=== PATIENT | female | born 1995 | race Two or more races ===

== ENCOUNTER 2022-01-07 06:25 | Day surgery (SDC) | payer BC, OTHER ==
[~2022-01-07 06:25] MED LIST: Lactated Ringers 1,000 ML IV SCH
[2022-01-07] MEDS ORDERED: Propofol 200 MG/20 ML SDV ONE (07:31)
[2022-01-07] MEDS ORDERED: fentaNYL 250 MCG/5 ML SDV ONE (07:31)
[2022-01-07] MEDS ORDERED: Ferric Subsulfate Topical Soln 8 GM (8 ML) Bottle ONE (07:41)
[2022-01-07] MEDS ORDERED: Iodine/Potassium Iodide 5% Solution 14 ML Bottle ONE (07:41)
[2022-01-07] MEDS ORDERED: Lidocaine 1% with EPINEPHrine 1:100,000 50 ML MDV ONE (07:41)
[2022-01-07 08:09] LABS: CARBON DIOXIDE,CO2 25.5 mmol/L (21.0-32.0)
[2022-01-07] MEDS ORDERED: Albuterol 0.083% 2.5 MG/3 ML Neb Soln NEB PRN (08:10)
[2022-01-07] MEDS ORDERED: Naloxone 0.4 MG/ML SDV IVPUSH PRN (08:10)
[2022-01-07] MEDS ORDERED: Ondansetron 4 MG/2 ML SDV IVPUSH PRN (08:10)
[2022-01-07] MEDS ORDERED: Morphine 4 MG/ML VIAL IVPUSH PRN (08:10)
[2022-01-07] MEDS ORDERED: Metoclopramide 10 MG/2 ML SDV IVPUSH PRN (08:10)
[2022-01-07] MEDS ORDERED: HYDROmorphone 1 MG/ML Syringe IVPUSH PRN (08:10)
[2022-01-07] MEDS ORDERED: fentaNYL 50 MCG/ML SDV IVPUSH PRN (08:10)
[2022-01-07] MEDS ORDERED: Ketorolac 30 MG/ML SDV ONE ×2 (08:34→10:09)
[2022-01-07] MEDS ORDERED: Dexamethasone 4 MG/ML 5 ML MDV ONE (08:34)
[2022-01-07] MEDS ORDERED: Ondansetron 4 MG/2 ML SDV ONE ×2 (08:34→10:09)
[2022-01-07] MEDS ORDERED: Acetaminophen/HYDROcodone 325-5 MG Tab PO PRN (08:47)
[2022-01-07] MEDS ORDERED: fentaNYL 100 MCG/2 ML SDV ONE ×2 (09:50→10:08)
== END 2022-01-07 09:54 | disposition home or self-care (01) ==
LOC: MW.SDS 06:25
PROVIDERS: ATTEND Obstetrics & Gynecology
DX: N87.1 Moderate cervical dysplasia (principal); I10 Essential (primary) hypertension; E66.9 Obesity, unspecified; Z98.890 Other specified postprocedural states; Z79.899 Other long term (current) drug therapy; Z88.1 Allergy status to other antibiotic agents; Z91.048 Other nonmedicinal substance allergy status; Z91.041 Radiographic dye allergy status; Z68.36 Body mass index [BMI] 36.0-36.9, adult
CPT/HCPCS: 36415; 57460; 80053; 81025; 85025; 86850; 86900; 86901; A9270; J0131; J1100; J1885; J2405; J2704; J3010; J7120; 00940; J3490

== ENCOUNTER 2023-03-11 14:03 | Inpatient (IN) | payer OTHER ==
[2023-03-11] MEDS ORDERED: Sodium Chloride 0.9% 20 ML SDV IV PRN (16:10)
[2023-03-11] MEDS ORDERED: Methylergonovine 0.2 MG/1 ML Amp IM PRN (16:10)
[2023-03-11] MEDS ORDERED: Water For Irrigation,Sterile 1,000 ML Container IRR PRN (16:10)
[2023-03-11] MEDS ORDERED: Sodium Chloride 0.9% 10 ML Syringe FLUSH PRN (16:10)
[2023-03-11] MEDS ORDERED: Misoprostol 200 MCG Tab PO PRN (16:10)
[2023-03-11] MEDS ORDERED: Ondansetron 4 MG/2 ML SDV IVPUSH PRN (16:10)
[2023-03-11] MEDS ORDERED: Lidocaine 1% 50 ML MDV INJECT PRN (16:10)
[2023-03-11] MEDS ORDERED: Carboprost Tromethamine 250 MCG/1 mL Vial IM PRN (16:10)
[2023-03-11] MEDS ORDERED: Terbutaline 1 MG/ML SDV SUBCUT PRN (16:10)
[2023-03-11] MEDS ORDERED: Tranexamic Acid IN NACL,ISO-OS 1,000 MG in Premix Bag 1 BAG IV PRN ×2 (16:10)
[2023-03-11] MEDS ORDERED: Sodium Chloride 0.9% 2.5 ML Syringe FLUSH PRN (16:10)
[2023-03-11] MEDS ORDERED: Oxytocin/0.9 % Sodium Chloride 30 UNIT/500 ML BAG IV SCH (16:15)
[2023-03-11] MEDS ORDERED: Nalbuphine 10 MG/0.5 ML Syringe IVPUSH PRN (16:24)
[2023-03-11] MEDS ORDERED: Misoprostol 25 MCG (1/4 of 100 MCG) Tab PO PRN (16:45)
[2023-03-11] MEDS: Lactated Ringers 1,000 ML IV SCH (16:55)
[2023-03-11 17:11] LABS: HEMATOCRIT 38.1 % (37.0-47.0); MEAN CORPUSCULAR HGB CONC 34.1 g/dL (32.0-36.0); MEAN CORPUSCULAR VOLUME 81.9 fL (83.0-99.0); MEAN PLATELET VOLUME 9.4 fL (9.4-12.3); PLATELET COUNT,PLT 332 K/uL (150-400); RED BLOOD CELL COUNT 4.65 M/uL (4.10-5.30); WHITE BLOOD CELL COUNT,WBC 14.66 K/uL (3.9-11.3)
[2023-03-11] MEDS: Misoprostol 25 MCG (1/4 of 100 MCG) Tab VAG PRN ×2 (17:27→21:27)
[2023-03-11] MEDS ORDERED: ePHEDrine 50 MG/ML SDV IVPUSH PRN ×2 (19:04)
[2023-03-11] MEDS ORDERED: Phenylephrine HCl 0.5 MG/5 ML AMP IVPUSH PRN (19:04)
[2023-03-11] MEDS: Misoprostol 25 MCG (1/4 of 100 MCG) Tab PO PRN (21:27)
[2023-03-12] MEDS: Misoprostol 25 MCG (1/4 of 100 MCG) Tab VAG PRN ×2 (01:43→05:39)
[2023-03-12] MEDS: Misoprostol 25 MCG (1/4 of 100 MCG) Tab PO PRN ×2 (01:45→05:42)
[2023-03-12] MEDS: Lactated Ringers 1,000 ML IV SCH ×4 (01:54→20:56)
[2023-03-12] MEDS ORDERED: Ampicillin/Sulbactam Na 3 GM in Sodium Chloride 0.9% 100 ML IV ONE (09:54)
[2023-03-12] MEDS: Oxytocin/0.9 % Sodium Chloride 30 UNIT/500 ML BAG IV SCH (10:14)
[2023-03-12] MEDS ORDERED: Dexmedetomidine 200 MCG/2 ML SDV ONE (12:30)
[2023-03-12] MEDS: Ampicillin/Sulbactam Na 1.5 GM in Sodium Chloride 0.9% 50 ML IV SCH ×2 (16:11→22:38)
[2023-03-13] MEDS: Lactated Ringers 1,000 ML IV SCH ×2 (01:53→04:09)
[2023-03-13] MEDS: Ampicillin/Sulbactam Na 1.5 GM in Sodium Chloride 0.9% 50 ML IV SCH ×4 (04:16→22:11)
[2023-03-13] MEDS: Ropivacaine HCl/PF 400 MG in Premix Bag 1 BAG EPIDUR SCH ×2 (05:32→16:10)
[2023-03-13] MEDS ORDERED: Bupivacaine 0.25% 10 ML SDV ONE (07:57)
[2023-03-13] MEDS ORDERED: fentaNYL 100 MCG/2 ML SDV ONE ×2 (07:57→18:05)
[2023-03-13] MEDS: Oxytocin/0.9 % Sodium Chloride 30 UNIT/500 ML BAG IV SCH (16:04)
[2023-03-13] MEDS ORDERED: Morphine PF 10 MG/10 ML SDV ONE (18:05)
[2023-03-13] MEDS ORDERED: Ketorolac 30 MG/ML SDV ONE (18:05)
[2023-03-13] MEDS ORDERED: ceFAZolin 1 GM Vial ONE ×2 (18:05→18:09)
[2023-03-13] MEDS ORDERED: Ropivacaine 0.5% 5 MG/ML 30 ML SDV ONE (18:05)
[2023-03-13] MEDS ORDERED: Dexamethasone 4 MG/ML 5 ML MDV ONE ×2 (18:05→18:39)
[2023-03-13] MEDS ORDERED: Oxytocin 10 Units/1 ML SDV ONE ×2 (18:05→18:55)
[2023-03-13] MEDS ORDERED: Ondansetron 4 MG/2 ML SDV ONE ×2 (18:05→18:07)
[2023-03-13] MEDS ORDERED: Lidocaine 2% 5 ML SDV ONE (18:09)
[2023-03-13] MEDS ORDERED: Phenylephrine 1% 10 MG/ML SDV ONE (18:09)
[2023-03-13] MEDS ORDERED: Azithromycin 500 MG Vial ONE (18:37)
[2023-03-13] MEDS ORDERED: Witch Hazel Medicated Pads 40/Jar TOP ONE (19:59)
[2023-03-13] MEDS ORDERED: Benzocaine/Menthol 20%-0.5% Spray 78 GM Cannister ONE (20:00)
[2023-03-13] MEDS ORDERED: fentaNYL 50 MCG/ML SDV IVPUSH PRN (20:07)
[2023-03-13] MEDS ORDERED: ePHEDrine 50 MG/ML SDV IVPUSH PRN (20:07)
[2023-03-13] MEDS ORDERED: Lanolin 100% Cream 7 GM Tube TOP PRN (20:07)
[2023-03-13] MEDS ORDERED: Misoprostol 200 MCG Tab RECTAL PRN (20:07)
[2023-03-13] MEDS ORDERED: Ondansetron 4 MG/2 ML SDV IVPUSH PRN ×3 (20:07)
[2023-03-13] MEDS ORDERED: Oxytocin 10 Units/1 ML SDV IM PRN (20:07)
[2023-03-13] MEDS ORDERED: diphenhydrAMINE 50 MG/ML SDV IVPUSH PRN ×2 (20:07)
[2023-03-13] MEDS ORDERED: Metoclopramide 10 MG/2 ML SDV IVPUSH PRN (20:07)
[2023-03-13] MEDS ORDERED: Witch Hazel Medicated Pads 40/Jar TOP PRN (20:07)
[2023-03-13] MEDS ORDERED: Methylergonovine 0.2 MG/1 ML Amp IM PRN (20:07)
[2023-03-13] MEDS ORDERED: Acetaminophen/oxyCODONE 325-5 MG Tab PO PRN (20:07)
[2023-03-13] MEDS ORDERED: Naloxone 0.4 MG/ML SDV IVPUSH PRN (20:07)
[2023-03-13] MEDS ORDERED: Albuterol 0.083% 2.5 MG/3 ML Neb Soln NEB PRN (20:07)
[2023-03-13] MEDS ORDERED: fentaNYL 100 MCG/2 ML SDV IVPUSH PRN (20:07)
[2023-03-13] MEDS ORDERED: Morphine 2 MG/ML SYRINGE IVPUSH PRN (20:07)
[2023-03-13] MEDS ORDERED: droPERidol 5 MG/2 ML SDV IVPUSH PRN (20:07)
[2023-03-13] MEDS ORDERED: HYDROmorphone 1 MG/ML Syringe IVPUSH PRN (20:07)
[2023-03-13] MEDS ORDERED: Bisacodyl 10 MG Supp RECTAL PRN (20:07)
[2023-03-13] MEDS ORDERED: Nalbuphine 10 MG/0.5 ML Syringe IVPUSH PRN (20:10)
[2023-03-13] MEDS ORDERED: Lactated Ringers 1,000 ML IV SCH (20:15)
[2023-03-13 20:24] LABS: PH,UMBILICAL ARTERIAL 7.198 (7.18-7.38)
[2023-03-13 20:25] LABS: PH,UMBILICAL VENOUS 7.257 (7.25-7.45)
[2023-03-13] MEDS: Acetaminophen 1,000 MG in Premix Bag 1 BAG IV SCH (20:37)
[2023-03-13] MEDS: Docusate Sodium 100 MG Cap PO SCH (21:00)
[2023-03-14] MEDS: Ketorolac 30 MG/ML SDV IVPUSH SCH ×4 (00:02→18:27)
[2023-03-14] MEDS: Simethicone 80 MG Tab.Chew PO SCH ×4 (00:02→18:26)
[2023-03-14] MEDS: Acetaminophen 1,000 MG in Premix Bag 1 BAG IV SCH ×3 (02:09→14:09)
[2023-03-14] MEDS: Ampicillin/Sulbactam Na 1.5 GM in Sodium Chloride 0.9% 50 ML IV SCH ×3 (04:10→16:03)
[2023-03-14 06:37] LABS: BASOPHILS ABSOLUTE AUTO 0.03 K/uL (0.00-0.20); BASOPHILS PERCENT AUTO 0.1 % (0.0-1.0); EOSINOPHILS ABSOLUTE AUTO 0.02 K/uL (0.00-0.45); EOSINOPHILS PERCENT AUTO 0.1 % (0.0-6.0); HEMATOCRIT 25.3 % (37.0-47.0); HEMOGLOBIN 8.8 g/dL (12.0-16.0); IMMATURE GRAN ABSOLUTE AUTO 0.23 K/uL (0.00-0.05); LYMPHOCYTES ABSOLUTE AUTO 1.07 K/uL (1.00-4.80); LYMPHOCYTES PERCENT AUTO 4.9 % (24.0-44.0); MEAN CORPUSCULAR HEMOGLOBIN 28.6 pg (28.0-32.0); MEAN CORPUSCULAR HGB CONC 34.8 g/dL (32.0-36.0); MEAN CORPUSCULAR VOLUME 82.1 fL (83.0-99.0); MEAN PLATELET VOLUME 9.5 fL (9.4-12.3); MONOCYTES ABSOLUTE AUTO 1.32 K/uL (0.00-0.80); NEUTROPHILS ABSOLUTE AUTO 19.33 K/uL (1.80-7.70); NEUTROPHILS PERCENT AUTO 87.9 % (41.0-71.0); PLATELET COUNT,PLT 250 K/uL (150-400); RED BLOOD CELL COUNT 3.08 M/uL (4.10-5.30)
[2023-03-14] MEDS: Docusate Sodium 100 MG Cap PO SCH ×2 (08:10→21:36)
[2023-03-15] MEDS: Simethicone 80 MG Tab.Chew PO SCH ×4 (00:12→18:25)
[2023-03-15] MEDS: Ibuprofen 800 MG Tab PO PRN ×3 (00:34→18:26)
[2023-03-15] MEDS: Docusate Sodium 100 MG Cap PO SCH ×2 (09:05→20:18)
[2023-03-15] MEDS ORDERED: Sodium Ferric Gluconate Cmplex 125 MG in Sodium Chloride 0.9% 100 ML IV ONE (12:00)
[2023-03-15] MEDS: Acetaminophen/oxyCODONE 325-5 MG Tab PO PRN ×2 (14:06→20:18)
[2023-03-16] MEDS: Acetaminophen/oxyCODONE 325-5 MG Tab PO PRN ×3 (00:30→17:25)
[2023-03-16] MEDS: Simethicone 80 MG Tab.Chew PO SCH ×4 (00:31→17:27)
[2023-03-16] MEDS: Ibuprofen 800 MG Tab PO PRN ×2 (04:33→12:54)
[2023-03-16] MEDS: Docusate Sodium 100 MG Cap PO SCH (08:48)
[2023-03-16] MEDS ORDERED: Simethicone 80 MG Tab.Chew ONE (12:49)
== END 2023-03-16 21:00 | disposition home or self-care (01) | DRG 788 ==
LOC: MW.OB 14:03 → MW.OBCHECK 14:03 → MW.OB 16:10 → OBSVTOIN 03-13 20:08 → MW.OB 03-13 23:04
PROVIDERS: ADMIT Obstetrics & Gynecology; ATTEND Obstetrics & Gynecology
PROC: 3E0P7VZ Introduction of Hormone into Female Reproductive, Via Natural or Artificial Opening (ICD-10-PCS; 2023-03-13)
PROC: 3E033VJ Introduction of Other Hormone into Peripheral Vein, Percutaneous Approach (ICD-10-PCS; 2023-03-13)
PROC: 3E0R3BZ Introduction of Anesthetic Agent into Spinal Canal, Percutaneous Approach (ICD-10-PCS; 2023-03-13)
PROC: 00HU33Z Insertion of Infusion Device into Spinal Canal, Percutaneous Approach (ICD-10-PCS; 2023-03-13)
PROC: 10D00Z1 Extraction of Products of Conception, Low, Open Approach (ICD-10-PCS; principal; 2023-03-13 18:29)
DX: O42.02 Full-term premature rupture of membranes, onset of labor within 24 hours of rupture (principal); O11.4 Pre-existing hypertension with pre-eclampsia, complicating childbirth; O62.1 Secondary uterine inertia; Z37.0 Single live birth; Z91.041 Radiographic dye allergy status; Z91.048 Other nonmedicinal substance allergy status; Z3A.36 36 weeks gestation of pregnancy
CPT/HCPCS: 36415; 51702; 59025; 82803; 85025; 85027; 86592; 86850; 86900; 86901; A9270-GY; J0131; J0295; J0456; J0690; J1100; J1200; J1885; J2274; J2300; J2371; J2405; J2590; J2795; J2916; J3010; J3490; J7120